=== PATIENT | female | born 1950 | race Caucasian/White ===

== ENCOUNTER 2016-10-01 10:14 | Outpatient (CLI) | payer MEDICARE, MEDICAID | END 2016-10-01 10:15 | disposition home or self-care (01) | DX: G47.33 Obstructive sleep apnea (adult) (pediatric) (principal) | CPT/HCPCS: 99214; G0463 ==

== ENCOUNTER 2016-10-19 09:45 | Outpatient (CLI) | payer MEDICARE, MEDICAID | END 2016-10-19 09:46 | disposition home or self-care (01) | DX: E11.9 Type 2 diabetes mellitus without complications (principal) ==